=== PATIENT | male | born 1980 | race American Indian/Alaskan Native ===

== ENCOUNTER 2017-04-10 12:36 | Emergency (ER) | payer MEDICARE ==
[2017-04-10 12:47] VITALS: BP 128/67
== END 2017-04-10 19:40 | disposition left against medical advice (07) ==
LOC: ED 12:36
DX: T25.022A Burn of unspecified degree of left foot, initial encounter (principal); X08.8XXA Exposure to other specified smoke, fire and flames, initial encounter; Y93.9 Activity, unspecified; Y99.9 Unspecified external cause status; Y92.89 Other specified places as the place of occurrence of the external cause; Z53.21 Procedure and treatment not carried out due to patient leaving prior to being seen by health care provider